=== PATIENT | female | born 1970 | race Caucasian/White ===

== ENCOUNTER 2022-08-25 10:47 | Outpatient (CLI) | payer BC, SELFPAY | END 2022-08-25 10:48 | disposition home or self-care (01) | PROVIDERS: PCP Physician Assistant Medical; Visit Provider Physician Assistant Medical | DX: Z00.00 Encounter for general adult medical examination without abnormal findings (principal); E78.5 Hyperlipidemia, unspecified; E66.9 Obesity, unspecified; R73.09 Other abnormal glucose; R79.89 Other specified abnormal findings of blood chemistry; F41.9 Anxiety disorder, unspecified | CPT/HCPCS: 80053; 80061; 83001 ==

== ENCOUNTER 2022-09-24 09:08 | Outpatient (CLI) | payer BC, SELFPAY ==
--- NOTE | 2022-09-24 11:24 | W.ANESCHARGE ---
Anesthesia Charges Start Date/Time Anesthesia Start Date: 09/24/22 Anesthesia Start Time: 10:05 Stop Date/Time Anesthesia Stop Date: 09/24/22 Anesthesia Stop Time: 10:35
--- NOTE | 2022-09-24 11:39 | W.ANESCHARGE ---
Anesthesia Charges Start Date/Time Anesthesia Start Date: 09/24/22 Anesthesia Start Time: 10:05 Stop Date/Time Anesthesia Stop Date: 09/24/22 Anesthesia Stop Time: 10:35
== END 2022-09-24 09:09 | disposition home or self-care (01) ==
LOC: OP CLINIC 09:09
PROVIDERS: PCP Physician Assistant Medical; Visit Provider Internal Medicine
DX: Z12.11 Encounter for screening for malignant neoplasm of colon (principal)
CPT/HCPCS: 00812; 45378; J2704

== ENCOUNTER 2023-01-25 11:14 | Outpatient (CLI) | payer BC, SELFPAY ==
--- NOTE | 2023-01-25 11:30 | CRLHL7_ITS ---
For Patients: As a result of the Century Cures Act, medical imaging exams and procedure reports are released immediately into your electronic medical record. You may view this report before your referring provider. If you have questions, please contact your health care provider. BILATERAL SCREENING MAMMOGRAM WITH COMPUTER-AIDED DETECTION TECHNIQUE: CC, MLO and Implant displaced views were obtained. These mammographic images have been obtained using full-field digital technique. These mammographic images were interpreted with the benefit of computer-aided detection. COMPARISON FILM: 07/17/20, 08/08/18, 05/04/16. FINDINGS: The breasts are heterogeneously dense, which may obscure small masses IMPRESSION: There is no radiographic evidence for malignancy. ASSESSMENT: BI-RADS Category 2: Benign RECOMMENDATION: Routine screening mammogram in 1 year. A lay language report of this examination will be provided to the patient. Low Mac M.D. Diagnostic/Nuclear Medicine Radiologist [email or web address] ADRIANA/Dictated by: Low Mac MD @ 01/26/2023 10:30:00 AM (Electronically Signed)
== END 2023-01-25 11:15 | disposition home or self-care (01) ==
PROVIDERS: PCP Physician Assistant Medical; Visit Provider Physician Assistant Medical
DX: Z12.31 Encounter for screening mammogram for malignant neoplasm of breast (principal); R92.2 Inconclusive mammogram
CPT/HCPCS: 77063; 77067

== ENCOUNTER 2023-05-25 08:41 | Outpatient (CLI) | payer BC, SELFPAY ==
--- NOTE | 2023-05-25 09:00 | CRLHL7_ITS ---
For Patients: As a result of the Century Cures Act, medical imaging exams and procedure reports are released immediately into your electronic medical record. You may view this report before your referring provider. If you have questions, please contact your health care provider. INDICATION: Lung cancer screening. TECHNIQUE: Low-dose lung cancer screening non-contrast CT chest. Dose reduction techniques were used. COMPARISON: None. FINDINGS: NODULES: None. LUNGS AND PLEURA: Normal. MEDIASTINUM: Normal. CORONARY ARTERY CALCIFICATION: Present. None. LIMITED UPPER ABDOMEN: Fatty liver MUSCULOSKELETAL: Normal. IMPRESSION: 1. Negative for lung cancer screening purposes. LUNG-RADS CATEGORY: 1: Negative. Continue annual screening with low-dose CT chest in 12 months. Please note that all CT scans at this facility use dose modulation, iterative reconstruction, and/or weight-based dosing when appropriate to reduce radiation dose to as low as reasonably achievable. Dictated by Concepción Hernandez MD @ 05/26/2023 3:00:38 PM (Electronically Signed)
== END 2023-05-25 08:42 | disposition home or self-care (01) ==
LOC: CT 08:42
PROVIDERS: PCP Physician Assistant Medical; Visit Provider Physician Assistant Medical
DX: Z12.2 Encounter for screening for malignant neoplasm of respiratory organs (principal); Z87.891 Personal history of nicotine dependence
CPT/HCPCS: 71271

== ENCOUNTER 2024-01-02 10:24 | Outpatient (CLI) | payer BC, SELFPAY ==
[2024-01-02 23:35] LABS: Chlamydia DNA Amplified* NOT DETECTED (No Detected); GC DNA Amplified* NOT DETECTED (No Detected)
== END 2024-01-02 10:25 | disposition home or self-care (01) ==
PROVIDERS: PCP Physician Assistant Medical; Visit Provider Physician Assistant Medical
DX: Z00.00 Encounter for general adult medical examination without abnormal findings (principal); E78.5 Hyperlipidemia, unspecified; R79.89 Other specified abnormal findings of blood chemistry; R73.09 Other abnormal glucose; Z11.3 Encounter for screening for infections with a predominantly sexual mode of transmission
CPT/HCPCS: 80053; 80061; 83001; 87491; 87591

== ENCOUNTER 2025-04-04 12:18 | Outpatient (CLI) | payer BC, SELFPAY | END 2025-04-04 12:19 | disposition home or self-care (01) | PROVIDERS: PCP Physician Assistant Medical; Visit Provider Physician Assistant Medical | DX: Z00.00 Encounter for general adult medical examination without abnormal findings (principal) | CPT/HCPCS: 80053; 80061; 84443 ==

== ENCOUNTER 2025-04-30 10:44 | Emergency (ER) | payer BC, SELFPAY ==
[2025-04-30] VITALS (7 sets, daily range): BP systolic 151–180; BP diastolic 89–106; PULSE 69–73; RESP 18; TEMP 36.6; O2SAT 90–97
--- NOTE | 2025-04-30 10:48 | CRLHL7_ITS ---
For Patients: As a result of the Century Cures Act, medical imaging exams and procedure reports are released immediately into your electronic medical record. You may view this report before your referring provider. If you have questions, please contact your health care provider. INDICATION: Fall with head injury and visual changes COMPARISON: 04/02/2015 CT maxillofacial TECHNIQUE: CT of the head and maxillofacial region without contrast. FINDINGS: Brain, ventricles, and extra-axial spaces: No acute intracranial hemorrhage. Acharya-white differentiation is grossly preserved. Mild hypoattenuating changes in the white matter which are nonspecific, but commonly due to chronic microangiopathic change. Mild brain parenchymal volume loss with commensurate size of the ventricles and sulci. There are intracranial vascular calcifications. Bones: No acute osseous findings. Mild paranasal sinus mucosal thickening. Clear mastoid air cells. Degenerative changes in the partially imaged cervical spine. Mild degenerative change of the right and mild to moderate degenerative change of the left temporomandibular joint. Left-sided ann bullosa. Findings compatible with prior endoscopic sinus surgery. Additional findings: Mild fat stranding in the midline anterior scalp. IMPRESSION: 1. No acute intracranial noncontrast CT findings. 2. Mild fat stranding in the midline anterior scalp. No acute displaced maxillofacial fracture. 3. Mild brain parenchymal involutional changes. Please note that all CT scans at this facility use dose modulation, iterative reconstruction, and/or weight-based dosing when appropriate to reduce radiation dose to as low as reasonably achievable. Dictated by Benito Beltre MD @ 04/30/2025 12:24:32 PM (Electronically Signed)
--- NOTE | 2025-04-30 11:31 | CRLHL7_ITS ---
For Patients: As a result of the Century Cures Act, medical imaging exams and procedure reports are released immediately into your electronic medical record. You may view this report before your referring provider. If you have questions, please contact your health care provider. INDICATION [Fall with head injury and visual changes] COMPARISON [04/02/2015 CT maxillofacial] TECHNIQUE CT of the head and maxillofacial region without contrast. FINDINGS Brain, ventricles, and extra-axial spaces: [No acute intracranial hemorrhage.] [Acharya-white differentiation is grossly preserved.] Mild hypoattenuating changes in the white matter which are nonspecific, but commonly due to chronic microangiopathic change. [Mild brain parenchymal volume loss with commensurate size of the ventricles and sulci.] There are intracranial vascular calcifications. Bones: [No acute osseous findings.] [Mild paranasal sinus mucosal thickening.] [Clear mastoid air cells.] Degenerative changes in the partially imaged cervical spine. Mild degenerative change of the right and mild to moderate degenerative change of the left temporomandibular joint. Left-sided ann bullosa. Findings compatible with prior endoscopic sinus surgery. Additional findings: [Mild fat stranding in the midline anterior scalp.] IMPRESSION [No acute intracranial noncontrast CT findings.] Mild fat stranding in the midline anterior scalp. No acute displaced maxillofacial fracture. Mild brain parenchymal involutional changes. Please note that all CT scans at this facility use dose modulation, iterative reconstruction, and/or weight-based dosing when appropriate to reduce radiation dose to as low as reasonably achievable. Dictated by: Benito Beltre MD @ 04/30/2025 12:24:48 (Electronically Signed)
--- NOTE | 2025-04-30 11:37 | ED.FALL ---
HPI - Fall General Chief Complaint: Fall/Minor Trauma Stated Complaint: Fall, needs CT Time Seen by Provider: 04/30/25 11:29 History of Present Illness HPI Narrative: This 55-year-old female was sent from urgent care with the statement that she needs to have a CT scan of her head. The patient states that she fell 2 days ago out in the [place] and bumped her head and face on a log. She did not have loss of consciousness. She receive some superficial abrasions on her nose and right eyebrow. She has some mild bruising. She is not on any anticoagulants. She did not have any neurologic deficits. She does report a headache but states that is not the worst headache of her life. She did go to urgent care today because she continues to have a headache. Related Data Home Medications ?Medication ?Instructions ?Recorded ?Confirmed Multiple vitamin PO 01/19/23 04/30/25 cetirizine 10 mg capsule (Zyrtec) 10 mg PO QDAY PRN 05/16/23 04/30/25 Previous Rx's ?Medication ?Instructions ?Recorded atorvastatin 40 mg tablet 40 mg PO QDAY #90 tabs 12/19/24 bupropion HCl 150 mg 24 hr tablet, 150 mg PO DAILY #90 tabs 04/04/25 extended release citalopram 20 mg tablet 20 mg PO DAILY #90 tabs 04/04/25 metformin 500 mg tablet,extended 1,000 mg (2 x 500 mg) PO QDAY #180 04/04/25 release 24 hr tabs montelukast 10 mg tablet 10 mg PO QDAY #90 tabs 04/04/25 (Singulair) topiramate 50 mg tablet (Topamax) 50 mg PO BID #180 tabs 04/04/25 trazodone 50 mg tablet 25 - 50 mg (0.5 - 1 x 50 mg) PO 04/04/25 QHS #90 tabs tretinoin 0.025 % topical cream 1 applic topical .Bedtime #45 grams 04/04/25 azelaic acid 15 % topical gel 1 applic topical BID #50 grams 04/22/25 ketorolac 10 mg tablet 10 mg PO TID 5 days #15 tabs 04/30/25 Allergies Allergy/AdvReac Type Severity Reaction Status Date / Time No Known Allergies Allergy Unknown Unknown Verified 04/30/25 11:03 Review of Systems Status of ROS: Reports: 10 or more systems reviewed and unremarkable except as noted in History and below Narrative: Constitutional: No fevers, no weight gain or loss. Eyes: No discharge. No vision changes. HENT: No congestion, no sore throat, no ear pain. Cardiovascular: No chest pain, no palpitations. Respiratory: No shortness of breath, no wheezes, no cough. Gastrointestinal: No abdominal pain, no vomiting, no diarrhea. Genitourinary: No dysuria, no hematuria. Musculoskeletal: Normal range of motion. Skin: No rashes, no pruritis. Neurological: No dizziness, weakness, sensory change, speech change. Endo/Heme/Allergies: No bruising or bleeding. No polydipsia. Pysch: no suicidality, no anxiety, no insomnia. All other systems reviewed and are negative. [facility] Medical History (Updated 04/30/25 @ 12:57 by David Leone MD) Rosacea ?L71.9 - Rosacea, unspecified (ICD-10) Recurrent sinusitis (03/24/15) ?J32.9 - Chronic sinusitis, unspecified (ICD-10) Surgical History (Updated 08/25/22 @ 10:35 by Angie Gardiner PA-C) Hx of sinus surgery ?Z98.890 - Other specified postprocedural states (ICD-10) Hx of breast augmentation ?Z98.82 - Breast implant status (ICD-10) Family History (Updated 08/25/22 @ 10:39 by Angie Gardiner PA-C) Mother Diabetes Father Diabetes Kidney disease Myocardial infarction High blood pressure Coronary artery disease Aunt Breast cancer Other Polycystic kidney disease Social History (Updated 04/04/25 @ 14:43 by eSra Phipps ~ CTA) Narrative: Former smoker- QUIT around age 42 . 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 What is your current living situation?: I presently have a place to live Problems where you live: no known problems In the past 12 months, utilities in danger of being shut off: no In past 12 months, lack of transportation kept you from medical appts, meetings, work, or getting things needed for daily living: no In the past 12 mos, have been you worried that your food would run out before you had money to buy more?: never true In the past 12 mos, the food you bought just didn't last and you didn't have money to buy more?: never true Physical activity type: walking How many days of moderate to strenuous exercise, like a brisk walk, did you do in the last 7 days: 1 Smoking Status: Former smoker Do you use any of these nicotine containing products: None Second hand tobacco smoke exposure: No How often do you have a drink containing alcohol: 4 or more times a week How often do you have six or more drinks on one occasion: Never AUDIT-C Alcohol total score: 4 Non-prescribed substance use: denies use Are you now , , , , never or living with a partner: Social isolation score (0-1 are the most socially isolated patients): 1 How often does anyone, including family, friends and others, physically hurt you: never How often does anyone, including family, friends and others, insult or talk down to you: never How often does anyone, including family, friends and others, threaten you with harm: never How often does anyone, including family, friends and others, scream or curse at you: never Do you think of yourself as: straight/heterosexual Gender Identity: female Are you currently sexually active: Yes Exam Narrative: Exam Narrative: Constitutional: Well-developed, well-nourished, no acute distress. HEENT: Superficial abrasions on her nose and face with some mild bruising. No scalp hematoma. Neck: Normal range of motion. Nontender. Supple. Heart: Regular. No murmurs. Normal rate. Intact distal pulses. Lungs: Clear to auscultation. No chest discomfort. No wheezes, rhonchi, or rales. Abdomen: Normal bowel sounds. Nontender. No rebound tenderness. Genitalia: Deferred. Back: No midline tenderness. Normal range of motion. Extremities: Normal range of motion. No injury. Skin: Intact. No rash. Warm. No erythema or pallor. Neurologic: No altered sensation. No weakness. Alert and oriented. No neurologic deficit. Psychiatric: No suicidality. No anxiety or depression. No insomnia. Nursing notes and vitals signs are reviewed. Const: Vital Signs, click to edit/add: Vital Signs - 24 hr 04/30/25 10:59 Temperature 97.9 F Pulse Rate [Pulse Oximeter] 73 Respiratory Rate 18 Blood Pressure [Ri ght Upper Arm] 180/106 H Pulse Oximetry 96 Oxygen Delivery Me thod Room Air Course Vital Signs Vital signs: Initial Vital Signs Temperature 97.9 F 04/30/25 10:59 Temperature Source Temporal Artery Scan 04/30/25 10:59 Pulse Rate 73 04/30/25 10:59 Respiratory Rate 18 04/30/25 10:59 Blood Pressure 180/106 H 04/30/25 10:59 Blood Pressure Mean 130 H 04/30/25 10:59 Blood Pressure Position Sitting 04/30/25 10:59 Pulse Oximetry 96 04/30/25 10:59 Oxygen Delivery Method Room Air 04/30/25 10:59 Vital Signs Temperature 97.9 F 04/30/25 10:59 Pulse Rate 73 04/30/25 10:59 Respiratory Rate 18 04/30/25 10:59 Blood Pressure 180/106 H 04/30/25 10:59 Pulse Oximetry 96 04/30/25 10:59 Oxygen Delivery Method Room Air 04/30/25 10:59 Temperature 97.9 F 04/30/25 10:59 Pulse Rate 73 04/30/25 10:59 Respiratory Rate 18 04/30/25 10:59 Blood Pressure 180/106 H 04/30/25 10:59 Pulse Oximetry 96 04/30/25 10:59 Oxygen Delivery Method Room Air 04/30/25 10:59 MDM - Fall MDM Narrative Medical decision making narrative: This patient comes in from urgent care for evaluation of injuries from a fall that occurred a couple days ago. She is reporting a moderate headache but has no other symptoms. CT images of her head and facial bones are obtained and returned with no acute findings. This was reassuring to the patient. She may be having some concussion symptoms despite no loss of consciousness. I did discuss matters pertaining to that. She does have a note off of work for through the rest of this week. I did provide a prescription for Toradol. Imaging Data CT Head and Face: Radiologist's impression: 1. No acute intracranial noncontrast CT findings. 2. Mild fat stranding in the midline anterior scalp. No acute displaced maxillofacial fracture. 3. Mild brain parenchymal involutional changes. Discharge Plan Discharge Clinical Impression: Closed head injury Patient Disposition: Home, Self-Care Condition: Stable Additional Instructions: Take medication as needed and directed. Increase activity as tolerated. Follow up with MD return if worsening. Prescriptions: New ketorolac 10 mg tablet 10 mg PO TID 5 Days Qty: 15 0RF No Action bupropion HCl 150 mg tablet extended release 24 hr 150 mg PO DAILY Qty: 90 3RF citalopram 20 mg tablet 20 mg PO DAILY Qty: 90 3RF metformin 500 mg tablet extended release 24 hr 1,000 mg PO QDAY Qty: 180 3RF Rx Instructions: Two tablets once daily for weight management montelukast [Singulair] 10 mg tablet 10 mg PO QDAY Qty: 90 3RF Rx Instructions: for allergic rhinitis topiramate [Topamax] 50 mg tablet 50 mg PO BID Qty: 180 3RF Rx Instructions: one tablet twice daily trazodone 50 mg tablet 25 - 50 mg PO QHS Qty: 90 3RF Rx Instructions: 1/2-1 tab nightly to help with sleep tretinoin 0.025 % cream 1 applic topical .Bedtime Qty: 45 2RF Multiple vitamin PO Zyrtec 10 mg capsule 10 mg PO QDAY PRN atorvastatin 40 mg tablet 40 mg PO QDAY Qty: 90 0RF Rx Instructions: once daily for cholesterol New dosing recheck labs 3 months azelaic acid 15 % gel 1 applic topical BID Qty: 50 2RF Follow Up/Referrals: Angie Gardiner PA-C [Primary Care Provider, Family Practice] Stand Alone Forms: [employer] Instructions
== END 2025-04-30 13:07 | disposition home or self-care (01) ==
PROVIDERS: Emergency Provider Emergency Medicine Emergency Medical Services; PCP Physician Assistant Medical
DX: S00.31XA Abrasion of nose, initial encounter (principal); S00.211A Abrasion of right eyelid and periocular area, initial encounter; W01.10XA Fall on same level from slipping, tripping and stumbling with subsequent striking against unspecified object, initial encounter; R51.9 Headache, unspecified
CPT/HCPCS: 70450; 70486; 99284